=== PATIENT | male | born 1950 | race Caucasian/White ===

== ENCOUNTER → 2017-02-15 | Outpatient (CLI) | payer MEDICARE, BC ==
[~2017-02-15] MED LIST: AMLODIPINE BESY10 MG PO; AMLODIPINE BESYL5 MG PO; ASCORBIC ACID500 M2 PO; ASPIRIN ENTERI325 M1 PO; ASPIRIN1 GM; ASPIRIN325 M1 PO; BAYER ASPIRIN325 M1 PO; CYANOCOBALAM1000 MCG PO; DOCUSATE SODIU100 MG PO; ENFOLAST TABLE1 EACH PO; GLUCOSAMINE & C1 CAP PO; GLUCOSAMINE-CHO1 CA1 PO; GLUCOSAMINE1000 MG PO; LIPITOR20 MG PO; MULTI VITAMIN1 EACH PO; PANTOPRAZOLE SO40 MG PO; PERCOCET 5-3251 TAB PO; PERCOCET5/325 PO; PRINIVIL40 MG PO; PROTONIX PO; REGLAN10 MG PO; SIMVASTATIN20 MG PO; STOOL SOFTENER; STOOL SOFTENER50 MG PO; SYMBICORT 16010.2 GM INH; SYMBICORT 80-10.2 GM INH; SYMBICORT IH; SYMBICORT80 INH; TENORMIN50 MG PO; VIT B-12 PO; VITAMIN B 12 PO
--- NOTE | ~2017-02-15 | US37 ---
[facility] A Service of [facility] & [facility] RADIOLOGY TEXT RESULTS PATIENT: MARCOS REYNOSO LOCATION: CNIV : 51 UNIT #: [id number] AGE: [address]: Yanelis Castaneda SEX: M ORDER DR: [id number] [facility] [address] [place], [place] [address] [id number] O MR#: [id number] Acc #: [id number] NAME: MARCOS REYNOSO. : 1950 SEX: M STUDY DATE/TIME: 02/15/2017 12:39 UNIT: CNIV ROOM: STUDY DESCRIPTION: US Carotid W/Doppler Bilateral Attending Physician: Yanelis Castaneda A.P.R.N. Referring Physician: Yanelis Castaneda A.P.R.N. Ordering Physician: Yanelis Castaneda A.P.R.N. Primary Care Physician: Dago Frazier M.D. MEDICAL IMAGING REPORT This report is preliminary unless electronic signature is present EXAM Bilateral carotid duplex HISTORY Carotid artery stenosis FINDINGS Duplex imaging of the carotid arteries was performed. Plaque is seen in the common carotid, internal and external carotid arteries, which is hyperechoic with acoustical shadowing in the internal carotid artery. Velocity in the right common carotid is 47, internal is 90, and external is 96 cm/sec. The right ICA:CCA ratio is 1.9. On the left side, plaque is seen in the left distal common, internal, and external carotid arteries, which is mild. Velocity in the left common carotid artery is 54, internal is 57, and external is 80 cm/sec. The left ICA:CCA ratio is 1.4. Antegrade flow is seen in the right and left vertebral arteries. IMPRESSION Plaque with less than 50% stenosis is seen in the right and left internal carotid arteries bilaterally. Antegrade flow is seen in the right and left vertebral arteries. Dictated by... Joseph Bauer M.D. THIS IS AN ELECTRONICALLY VERIFIED REPORT Joseph Bauer M.D. at 02/18/2017 10:59 AM [facility] A Service of [facility] & [facility] RADIOLOGY TEXT RESULTS PATIENT: MARCOS REYNOSO LOCATION: CNIV : 51 UNIT #: [id number] AGE: [address]: Yanelis Castaneda SEX: M ORDER DR: Priya TD: 02/15/2017 15:33 JOB #: [id number] MEDICAL IMAGING REPORT Page 1 of 1 COPY
--- NOTE | ~2017-02-15 | US82 ---
[facility] A Service of [facility] & [facility] RADIOLOGY TEXT RESULTS PATIENT: MARCOS REYNOSO LOCATION: CNIV : 51 UNIT #: [id number] AGE: [address]: Yanelis Castaneda SEX: M ORDER DR: [id number] [facility] [address] [place], [place] [address] [id number] O MR#: [id number] Acc #: [id number] NAME: MARCOS REYNOSO. : 1950 SEX: M STUDY DATE/TIME: 02/15/2017 13:16 UNIT: CNIV ROOM: STUDY DESCRIPTION: LE Art/Art [employer]rafts Comp Elvis Attending Physician: Yanelis Castaneda A.P.R.N. Referring Physician: Yanelis Castaneda A.P.R.N. Ordering Physician: Yanelis Castaneda A.P.R.N. Primary Care Physician: Dago Frazier M.D. MEDICAL IMAGING REPORT This report is preliminary unless electronic signature is present EXAM Bilateral lower extremity arterial duplex. HISTORY Peripheral vascular disease. FINDINGS Duplex imaging of the lower extremity arterial arteries was performed. The right common femoral artery is patent. Velocity in the right common femoral artery is 55 cm/sec. Profunda femoris artery is patent. Superficial femoral artery appears to be occluded. Popliteal artery is diseased with a velocity of 25 cm/sec. Poor flow is seen in the tibial vessels with a velocity of 17 cm/sec in the posterior tibial artery. On the left side, the common femoral artery is patent with a velocity of 79 cm/sec. Profunda femoris artery is patent with a velocity of 59 cm/sec. Superficial femoral artery is once again occluded from the origin. Mid and distal SFA occluded. Flow is seen in the popliteal artery at 48 cm/sec, tibioperoneal trunk at 33 cm/sec, posterior tibial artery is 32 cm/sec. IMPRESSION Duplex imaging of the lower extremities reveals bilateral superficial femoral arteries to be occluded with flow in the popliteal and posterior tibial arteries. Dictated by... Joseph Bauer M.D. [facility] A Service of [facility] & [facility] RADIOLOGY TEXT RESULTS PATIENT: MARCOS REYNOSO LOCATION: [facility] : 51 UNIT #: [id number] AGE: [address]: Yanelis Castaneda SEX: M ORDER DR: THIS IS AN ELECTRONICALLY VERIFIED REPORT Joseph Bauer M.D. at 02/18/2017 11:00 AM Marc TD: 02/15/2017 15:44 JOB #: [id number] MEDICAL IMAGING REPORT Page 1 of 1 COPY
--- NOTE | ~2017-02-15 | US136 ---
[facility] A Service of [facility] RADIOLOGY TEXT RESULTS PATIENT: MARCOS REYNOSO LOCATION: CNIV : 51 UNIT #: [id number] AGE: [address]: Yanelis Castaneda SEX: M ORDER DR: [id number] [facility] [address] [place], [place] [address] [id number] O MR#: [id number] Acc #: [id number] NAME: MARCOS REYNOSO. : 1950 SEX: M STUDY DATE/TIME: 02/15/2017 12:24 UNIT: CNIV ROOM: STUDY DESCRIPTION: U/L [facility] Art Study [facility] Attending Physician: Yanelis Castaneda A.P.R.N. Referring Physician: Yanelis Castaneda A.P.R.N. Ordering Physician: Yanelis Castaneda A.P.R.N. Primary Care Physician: Dago Frazier M.D. MEDICAL IMAGING REPORT This report is preliminary unless electronic signature is present EXAM Ankle brachial indices HISTORY Peripheral vascular disease. FINDINGS Waveforms are monophasic at the ankle levels bilaterally. Right brachial vein is 151 and left brachial pressure is 153 mmHg. On the right side dorsalis pedis is 75, posterior tibial 74, great toe is at 19 for a right ankle to brachial index of 0.49. On the left side posterior tibial is 81, dorsalis pedis 80,m great toe is 56 for a left ankle to brachial index of 0.53. IMPRESSION Moderate to severe peripheral vascular disease is seen in the lower extremities bilaterally with VIRGILIO of 0.49 on the right and 0.53 on the left. Significant small vessel disease is seen in the feet right worse than the left. Dictated by... Joseph Bauer M.D. THIS IS AN ELECTRONICALLY VERIFIED REPORT Joseph Bauer M.D. at 02/18/2017 10:59 AM /rajan TD: 02/15/2017 15:03 [facility] A Service of [facility] & [facility] RADIOLOGY TEXT RESULTS PATIENT: MARCOS REYNOSO LOCATION: [facility] : 51 UNIT #: [id number] AGE: [address]: Yanelis Castaneda SEX: M ORDER DR: AINSLEY #: [id number] MEDICAL IMAGING REPORT Page 1 of 1 COPY
== END | disposition home or self-care (01) ==
LOC: CNIV 11:53
DX: I65.23 Occlusion and stenosis of bilateral carotid arteries (principal); I73.9 Peripheral vascular disease, unspecified
CPT/HCPCS: 93880; 93922; 93925

== ENCOUNTER → 2017-04-02 | Outpatient (CLI) | payer MEDICARE, BC ==
--- NOTE | ~2017-04-02 | CT55 ---
[facility] A Service of [facility] & [facility] RADIOLOGY TEXT RESULTS PATIENT: MARCOS REYNOSO LOCATION: [facility] : 51 UNIT #: [id number] AGE: [address]: Dago Frazier MD SEX: M ORDER DR: [id number] [facility] [address] [place], [place] [address] [id number] O MR#: [id number] Acc #: [id number] NAME: MARCOS REYNOSO : 1950 SEX: M STUDY DATE/TIME: 04/02/2017 14:28 UNIT: [facility] ROOM: STUDY DESCRIPTION: CT Chest W Con Attending Physician: Dago Frazier M.D. Referring Physician: Dago Frazier M.D. Ordering Physician: Dago Frazier M.D. Primary Care Physician: Dago Frazier M.D. MEDICAL IMAGING REPORT This report is preliminary unless electronic signature is present EXAM CT of the chest with contrast. INDICATIONS Hemoptysis for [address] of the chest was performed following the administration of IV contrast. Coronal and sagittal reformatted images were obtained. This CT exam was performed with one or more of the following radiation dose reduction techniques: automatic exposure control, adjustment of mA and/or kV according to patient size, and iterative reconstruction. COMPARISON Comparison is made with 06/03/2015. FINDINGS There is a wedge-shaped consolidation located in the posterior aspect of the left lower lobe. This is favored to represent pneumonia. There is some interstitial thickening as well within the left lower lobe. There is a linear band of scarring/atelectasis in the inferior aspect of the right upper lobe. No suspicious lymphadenopathy. No pleural effusion. Tiny hiatal hernia. Coronary artery calcification. Limited imaging of the upper abdomen is unremarkable. Bone windows show an old healed rib fracture on the left. IMPRESSION There is a large wedge-shaped parenchymal consolidation within the left lower lobe favored to represent pneumonia. There is some interstitial thickening elsewhere in the left lower lobe. I would however recommend short-interval followup chest CT to ensure clearing of this finding. Follow up CT could be performed in 1-2 months. [facility] A Service of [facility] & [facility] RADIOLOGY TEXT RESULTS PATIENT: MARCOS REYNOSO LOCATION: [facility] #: [id number] : 51 UNIT #: [id number] AGE: [address]: Dago Frazier MD SEX: M ORDER DR: Dictated by... Carlo Martinez M.D. THIS IS AN ELECTRONICALLY VERIFIED REPORT Carlo Martinez M.D. at 04/04/2017 9:03 AM PAOLA/jim TD: 04/03/2017 23:25 JOB #: [id number] MEDICAL IMAGING REPORT Page 1 of 1 COPY
[2017-04-02 15:21] LABS: POC - CREATININE 0.78 mg/dL (0.64-1.27); POC - GFR >60.0 mL/min (>60)
== END | disposition home or self-care (01) ==
LOC: CCAT 13:05
PROVIDERS: Family Medicine
DX: R04.2 Hemoptysis (principal); J18.1 Lobar pneumonia, unspecified organism; J84.89 Other specified interstitial pulmonary diseases
CPT/HCPCS: 71260; 82565; Q9967